=== PATIENT | female | born 1985 ===

== ENCOUNTER 2017-03-03 18:04 | Observation (INO) | payer OTHER ==
[~2017-03-03] VITALS: Ht 165.1 cm; Wt 96.2 kg
--- NOTE | 2017-03-03 21:09 | DRSVH ---
PROCEDURE: US OB>14 BIOPHYSICAL PROFILE AND UMBILICAL DOPPLER INDICATIONS: HECTOR & GROWTH INADEQUATE CARE OUTSIDE/PRIOR DATING DATA: Last menstrual period (LMP): Unknown. LMP-based estimated date of delivery (ROSIE): Unknown. First dating scan (date and location): 11/21/2016. Estimated date of delivery (ROSIE) from first dating scan: 03/19/2017. TECHNIQUE: Real-time scanning was performed of the fetus, with image documentation and biometric tj surements. Biophysical profile was also obtained. COMPARISON: None. FINDINGS: General: A single living intrauterine gestation is present. Presentation: Vertex Placenta: Placental position is anterior, without previa. Cervix: Not well-seen Amniotic fluid: 5.5 cm Heart rate: 165 beats per minute Biparietal diameter: 85.6 cm corresponding to an estimated gestational age 34 weeks and 4 days. Head circumference: 30.1 cm corresponding to an estimated gestational age of 34 weeks and 3 days. Abdominal circumference: 33 cm corresponding to an estimated gestational age of 36 weeks and 6 days. Femur length: 7.5 cm corresponding to an estimated gestational age of 30 weeks and 1 day Estimated gestational age by the initial dating ultrasound: 37 weeks and 5 days Composite gestational age by today's ultrasound: 36 weeks and 0 days Estimated weight: 2988 g corresponding to the 32nd percentile Biophysical profile score Tone: 2/2 Movement: 2/2 Respiration: 2/2 Largest pocket: 0/2 Umbilical artery systolic/diastolic: 2.1-2.3 anatomy: Ventricles, choroid plexus, cisterna magna, cerebellum: Within normal limits Profile: Not well-seen Spine: Not well-seen Heart: 4 chambers identified. The outflow tracts are not well seen Chest, diaphragm, stomach, abdomen, and kidneys: Ultrasonographically normal Bladder: Sonographically normal Extremities: Not well-seen IMPRESSION: 1. Single viable intrauterine gestation with an estimated gestational age of 36 weeks and 0 days whic h is concordant with the original dating ultrasound. 2. Biophysical profile score 6/8 (fetus scored a 0/2 for largest pocket of amniotic fluid). 3. Umbilical artery S/D 2.1-2.3. Dictated by: Jeremias Calvert M.D. on 03/03/2017 at 21:01 Approved by: Jeremias Calvert M.D. on 03/03/2017 at 21:07
[2017-03-03] MEDS ORDERED: Methylergonovine 0.2 mg/mL Inj IM PRN (21:10)
[2017-03-03] MEDS ORDERED: Oxytocin 30 Units/500 mL LR 30 UNITS in IV Premix 1 EACH IV PRN (21:10)
[2017-03-03] MEDS ORDERED: Oxytocin 10 Unit/mL Inj IM PRN (21:10)
[2017-03-03] MEDS ORDERED: Sodium Chloride LOK Flush 10 mL Syringe IVFLUSH PRN (21:10)
[2017-03-03] MEDS ORDERED: Carboprost 250 mCg/mL Inj IM PRN (21:10)
[2017-03-03] MEDS ORDERED: Hemorrhage Kit, Post Partum XX ONE (21:10)
[2017-03-03] MEDS: Lactated Ringer's 1,000 ML IV PRN ×2 (21:25→23:18)
[2017-03-03] MEDS ORDERED: no current meds (21:38)
--- NOTE | 2017-03-04 09:29 | PCM.DIOB ---
Obstetrical Disch Instruction Date of Service: Mar 04, 2017 Dates of Hospitalization Date of Hospital Admission Mar 03, 2017 at 20:47 Providers Admitting Physician: Traci Parra MD Primary Care Physician: Jenny Fairchild MD Attending Physician: Traci Parra MD Discharge Diagnosis Discharge Diagnosis IUP@37weeks 6 days with reassuring status. Maternal substance abuse. HECTOR=6.5cm, BPP=10/10. Problems: Diet Discharge Diet: No restrictions Activity Discharge Activity-General: Pelvic Rest for 6 weeks, No lifting >10 pounds for 4-6 weeks Dressing and Incisional Care Hygiene: May shower Follow Up Plan Follow Up Plan Follow up for NST on 03/07/2017 and Repeat HECTOR in 1 week, Saturday. You need twice weekly evaluation and once weekly Ultrasound for measuring fluid. Will induce your labor at 39 weeks or earlier depending on any abnormal findings in surveillance. Follow-up appointment: Days (3) Call your provider for: Fever or Chills, Shortness of breath, Heavy vaginal bleeding, Other (decreased movements, leakage of fluid, regular strong uterine contractions , severe headache, chest pain, Right upper quadrant pain, visual symptoms.) Raoul Scales MD Mar 04, 2017 09:29
[2017-03-04] MEDS ORDERED: PREN-56 PO (09:30)
[2017-03-04] MEDS ORDERED: ASCO500S2 PO (09:40)
[2017-03-04] MEDS ORDERED: FERR-83 PO (09:40)
--- NOTE | 2017-03-04 10:07 | DRSVH ---
PROCEDURE: US OB AMNIOTIC FLUID INDEX/ POSITION LIMITED INDICATIONS: Assess for HECTOR OUTSIDE/PRIOR DATING DATA: Last menstrual period (LMP): None available. LMP-based estimated date of delivery (ROSIE): Not available. First dating scan (date and location): 11/21/2016 at [facility]. Estimated date of delivery (ROSIE) from first dating scan: 03/19/2017. TECHNIQUE: Real-time scanning was performed of the fetus, with image documentation and biometric measurements. COMPARISON: None. FINDINGS: General: A single living intrauterine gestation is present. Presentation: Vertex Placenta: Placental position is anterior, without previa. OB-DEVOPS CONSULTANT Ultrasound Procedure Report Summary Fetus Summary Est. Gest. Age by first dating scan(or LMP,if no prior):37 weeks, 6 days Heart Rate: 145 bpm Findings(Amniotic Sac) Amniotic Fluid Index (HECTOR): 6.30 cm Pelvis and Uterus Cervix Length: Not well seen Measurement variability for biometric dating: +/- 7 days from 14 weeks to 15 weeks 6 days gestation, +/- 10 days from 16 weeks to 21 weeks 6 days gestation, +/- 2 weeks from 22 weeks to 27 weeks 6 days gestation, +/- 3 weeks for 28 weeks gestation or later. Anatomic survey: There is normal tone and movement. IMPRESSION: 1. A single living intrauterine gestation estimated gestational age 37 weeks 6 days based on the init ial ultrasound. 2. HECTOR 6.3 cm. 2. Cervix not well-seen. Dictated by: Tana Cabello M.D. on 03/04/2017 at 10:02 Transcribed by: DARCY on 03/04/2017 at 10:07 Approved by: Tana Cabello M.D. on 03/04/2017 at 12:01
--- NOTE | 2017-03-04 10:36 | DIS ---
[address] [address] DISCHARGE SUMMARY PATIENT: KB IBRAHIM : 1985 MR#: [id number] ADMIT: 03/03/2017 JOB ID: [id number] DIS: REASON FOR ADMISSION: Admitted for observation by Dr. Parra for 2 variable decelerations on the tracing. DISCHARGE DIAGNOSIS: Reassuring status. HOSPITAL COURSE: For further details, refer to the admission note and the following details. The patient is 31 years old, 6, para 5-0-0-5, at 37 weeks and 6 days gestational age by 23 week ultrasound. Had her complicated with the followin. Late care with one care visit to Dr. Fairchild at around 29 weeks. 2. Marginal placenta previa, resolved on follow up ultrasound. 3. History of hypertension and anemia last . She still has anemia this but no hypertension so far. The patient presented to the triage with loss of mucous plug. Cervical exam on admission last night was 3 cm dilated cervix, 30% effaced, and high presenting vertex. The patient had observation with continuous monitoring overnight. heart tracing was showing baseline of 130 beats per minute, positive accelerations, no decelerations, moderate variability, category 1 heart tracing since 1:30 a.m., and it is 9:30 a.m., so for the last 8 hours reassuring tracing. Biophysical profile last night was 10/10 after discussing with the radiologist. There was a maximum vertical pocket of 4 cm that qualifies for 2.4 amniotic fluid a portion of the biophysical profile. HECTOR last night was 5.5 cm. Repeat HECTOR this morning was 6.5 cm after bedrest overnight and IV hydration. Ultrasound last night also showed estimated weight of 2988 g, 32nd percentile, adequate growth, normal umbilical cord Dopplers. Average gestational age 36 weeks and 0 days. Estimated due date still March 19, 2017. Anterior placenta without previa. Cervical exam at the time of discharge by myself was 4 cm dilated, cervix 40% effaced, high presenting part. H and H on admission was 10 and 31.5, platelets 268, white blood count 13.7. Urine drug screen showed positive results for amphetamines, the rest was negative. DISCHARGE PLAN: The patient will be discharged home in stable condition. Will follow up in three days for NST. The plan would be biweekly NSTs and weekly AFIs, and will induce her labor at 39 weeks as elective induction. The above was discussed in detail with Dr. Renetta Root from the [facility], and she agreed there is no indication for induction of labor at that point considering the reassuring status and the improving HECTOR. The above was discussed with the patient as well, and the patient was encouraged to not use amphetamine again. She stopped completely for 1-1/2 years, and she just used it a few days ago for the first time after 1-1/2 years. She confirms she is not planning to use it again for the remainder of the . The above was discussed with the patient's software support representative, Dr. Fairchild, as well, who is aware of the plan and agreed also to the above.
--- NOTE | 2017-03-04 17:08 | NUR ---
Family Assessment Date/time: LUZ and JYOTHI and Baby: LUZ is Alanna Galdamez, JYOTHI Is Zach. LUZ is still and has not given yet. Reason for SW consult: TYING MACHINE OPERATOR LUMBER recieved order to meet with LUZ due to transportation concerns, late to care and positive tox screen for Amphetamines. TYING MACHINE OPERATOR LUMBER met with LUZ at bedside to check in and assess for any unmet needs, TYING MACHINE OPERATOR LUMBER role explained. LUZ explained that she was at home when she realized some of her mucus plug had discharged and she began to feel occasional contractions. LUZ states her other children where delivered very quickly once labor started and she presented to the ED in result. Current living situation: LUZ lives with her and their five children with husbands parents. Rhys recently moved from [place], [place] to the [facility] here in [place] this summer. Previous children/in whos care/CPS involvement: Rhys have five other children together (two girls and three boys ages ranging from 1-6 years old.) LUZ states that she has had the [facility] child services check in with them in the past due to previous drug screenings but none of the children were removed. Substance abuse hx: Pt states she has struggled with TCH and meth in the past. Pt states she was in a 6 month in drug rehab program in January of 2016 which was very helpful. LUZ states she has been clean since leaving [place] but relapsed five days ago when she did a "line" worth of meth. LUZ stated understanding that she knows child services will be contacted if baby tox screen or cord stat comes up positive for any substances after baby is born. LUZ explained that she relapsed due to recent losses included a in the family and the recent stressors of moving to a new city. LUZ denies any intention of continuing drug use the rest of her . Mental Health hx and current issues: LUZ denies any current struggles with mental health symptoms or previous diagnosis. LUZ does state that she has had depression with her last two births which was managed successfully with medications and family support. LUZ does not remember which medications she was on as she was not taking them for very long. LUZ denies any hx of suicidal or homicidal ideation during any of her experiences with depression. LUZ denies any current thoughts of harming herself or others and feels comfortable speaking to her or her physician [facility] if symptoms due arise. Post informational sheet provided for further reference. Source of income/state assistance: MOB and FOB are not working at this time. MOB is enrolled in WIC and TANF. DV/abuse hx: Denies. Supports: LUZ states FOB and FOB family are good supports. Special healthcare needs/disabilities for baby: N/A Involvement/Referral to [facility]/community programs: LUZ is enrolled in WIC. Further information surrounding TETO provided. Other: Late to care discussed with LUZ. LUZ confirmed she only had one ultrasound and was referred back and forth between [facility] and [facility] for various blood tests and follow up care. MOB encouraged to at least see her PCP and to look into a level vial marker for baby once baby is born. MOB states baby level vial marker is picked out as [facility]/Medicaid list of Pediatricians in the area provided just in case. LUZ confirmed that she has access to Medicaid transportation for medical appointments but they require 48 hours advance notice and LUZ was trying to avoid needing ambulance transportation due to high cost. MOB denies any other concerns with access to transportation. MOB denies any other needs. Assessment: TYING MACHINE OPERATOR LUMBER spoke with RN and MD who were concerned more with baby weight and deciding if MOB was really in active labor or not. It was decided later that MOB was safe to discharge home and follow up with outpt OB. No other TYING MACHINE OPERATOR LUMBER orders or MOB needs identified. Disposition/plan: MOB to discharge home with family. If MOB comes back to this medical system to deliver, TYING MACHINE OPERATOR LUMBER to follow up for any additional needs, new concerns or positive cord stat pending MD order. TETO, Post fact sheet, level vial marker and other community support services provided. No other TYING MACHINE OPERATOR LUMBER orders or MOB needs identified. ARMANDO Ying
== END 2017-03-04 10:15 | disposition home or self-care (01) ==
LOC: FBCO 18:04 → UNDOADMIN 20:47 → INTOOBSV 20:47 → FBC 20:47
PROVIDERS: ADMIT Obstetrics & Gynecology; ATTEND Obstetrics & Gynecology
DX: O76 Abnormality in fetal heart rate and rhythm complicating labor and delivery (principal); O09.33 Supervision of pregnancy with insufficient antenatal care, third trimester; O99.013 Anemia complicating pregnancy, third trimester; D64.9 Anemia, unspecified; Z3A.37 37 weeks gestation of pregnancy
CPT/HCPCS: 36415; 76805; 76815; 76819; 76820; 80053; 85027; 87081; 87491; 87591; G0378; G0463; G0472; G0480; J7120

== ENCOUNTER 2017-03-07 22:25 | Inpatient (IN) | payer OTHER ==
[~2017-03-07] VITALS: Ht 162.6 cm; Wt 93.0 kg
[~2017-03-07 22:25] MED LIST: ASCO500S2 PO; FERR-83 PO; PREN-56 PO; no current meds
[2017-03-08] MEDS ORDERED: Lactated Ringer's 1,000 ML IV PRN (00:37)
[2017-03-08] MEDS ORDERED: Oxytocin 10 Unit/mL Inj IM PRN ×2 (00:40→05:35)
[2017-03-08] MEDS ORDERED: Methylergonovine 0.2 mg/mL Inj IM PRN ×2 (00:40→05:35)
[2017-03-08] MEDS ORDERED: Sodium Chloride LOK Flush 10 mL Syringe IVFLUSH PRN (00:40)
[2017-03-08] MEDS ORDERED: Oxytocin 30 Units/500 mL LR 30 UNITS in IV Premix 1 EACH IV PRN ×2 (00:40→05:35)
[2017-03-08] MEDS ORDERED: fentaNYL-PF 50 mCg/mL 2 mL Inj IVPUSH PRN (00:40)
[2017-03-08] MEDS ORDERED: Carboprost 250 mCg/mL Inj IM PRN ×2 (00:40→05:35)
[2017-03-08] MEDS ORDERED: Hemorrhage Kit, Post Partum XX ONE ×2 (00:40→05:35)
[2017-03-08 01:07] LABS: Mean Corpuscular Hemoglobin 28.2 pg (27.0-35.0)
[2017-03-08] MEDS: Lactated Ringer's 1,000 ML IV SCH ×3 (05:31→21:31)
[2017-03-08] MEDS ORDERED: LANOlin HPA 7 Gm Ointment TOPICAL PRN (05:35)
[2017-03-08] MEDS ORDERED: Measles-Mumps-Rubella Vaccine 0.5 mL Inj SUBQ ONE (05:50)
--- NOTE | 2017-03-08 06:19 | HP ---
[address] [address] HISTORY AND PHYSICAL PATIENT: KB IBRAHIM : 1985 MR#: [id number] ADMIT: 03/08/2017 JOB ID: [id number] ADMISSION DIAGNOSIS: Active labor at term. HISTORY OF PRESENT ILLNESS: The patient is a 32-year-old, 6, para 5-0-0-5, at 38 weeks and 3 days gestational age by 23 week ultrasound. Had her complicated with the followin. Borderline oligohydramnios with HECTOR of 5.5 on March 03, 2017. Repeat was 6.5 cm on March 04, 2017. The patient was on surveillance with biweekly NSTs and weekly AFIs that were reassuring so far. 2. Presented in active labor with a 6 cm dilated cervix. 3. History of substance abuse. Positive UDS for amphetamines on March 01, 2017. UDS on admission today was negative. The patient admitted to amphetamine use; the last was one week ago. 4. Anemia, on iron and vitamin C supplementation. 5. History of hypertension with last . Maintained normal blood pressures during this . 6. BMI of 35.2. The patient denied any leakage of fluid, vaginal bleeding. Reports movements. Admitted for active labor. PAST OBSTETRICAL HISTORY: Five full-term pregnancies ended with spontaneous vaginal deliveries. No complications, per patient. PAST GYNECOLOGIC HISTORY: No history of abnormal Pap smears. History of prior Chlamydia, treated. Last chlamydia cultures during this were negative. PAST MEDICAL HISTORY: Anemia and asthma. Takes p.r.n. Ventolin inhaler. PAST SURGICAL HISTORY: None. MEDICATIONS: vitamins, Colace, vitamin C, iron. ALLERGIES: 1. PENICILLIN with hives. 2. HYDROCODONE and IBUPROFEN with itching. SOCIAL HISTORY: Cigarette smoking. Currently smokes four cigarettes per day. Had been smoking half a pack per day for the last 13 years, then she dropped to four cigarettes during the . Denied any alcohol consumption. Abusing amphetamine and methamphetamine. Last use was one week ago, per patient. FAMILY HISTORY: Positive for twinning. No congenital anomalies in the family. LABORATORIES: O positive, antibody negative, rubella nonimmune, RPR nonreactive, hepatitis C and B surface antigen negative, HIV nonreactive. Urine cultures negative. GC and chlamydia cultures negative. GBS cultures negative. H and H on admission is 9.9 and 32.2, platelets are 323, white blood count 12.7. PHYSICAL EXAMINATION: Patient is alert and oriented x3. Vital signs are 120/74 for blood pressure, respirations are 20, pulse is 88, temperature 36.2 degrees centigrade. Heart was regular rate and rhythm. Positive S1, S2. Lungs: Clear to auscultation bilaterally. Abdomen: Gravid uterus, nontender. Positive bowel sounds. Lower extremities: No calf tenderness appreciated bilaterally. Cervical exam: 8 cm dilated, cervix 90% effaced, -2 station, vertex presentation. Spontaneous rupture of membranes with clear scant amount of fluid. heart tracing is showing baseline of 140 beats per minute, positive accelerations, no decelerations, moderate variability, category 1 heart tracing. ASSESSMENT AND PLAN: The patient is a 32-year-old, 6, para 5-0-0-5, at 38 weeks and 3 days gestational age by 23 week ultrasound, with the above complications, in addition to cigarette smoking and rubella nonimmune status. 1. For labor, we will expectantly manage. 2. Category 1 heart tracing. Continue with external monitoring. 3. GBS cultures negative. 4. Discussed intrapartum analgesia options. Patient opted for natural . 5. Will administer MMR . All the above was discussed in detail with the patient, who agreed to the plan.
[2017-03-08] MEDS: Benzocaine (Dermoplast) 20% 60 Gm Spray TOPICAL PRN ×2 (06:24→07:51)
[2017-03-08] MEDS: Witch Hazel-Glycerin Pads TOPICAL PRN ×2 (06:24→07:51)
--- NOTE | 2017-03-08 06:25 | OP ---
[address] [address] OPERATIVE REPORT PATIENT: KB IBRAHIM : 1985 MR#: [id number] ADMIT: 03/08/2017 JOB ID: [id number] DATE OF SURGERY: 03/08/2017 DELIVERY NOTE: PREOPERATIVE DIAGNOSIS(ES): A 32-year-old, 6, para 5-0-0-5 at 38 weeks and 3 days, gestational age by 23 week ultrasound, presents in active labor, progressed to fully dilated, +3 station. POSTOPERATIVE DIAGNOSIS(ES): A 32-year-old, 6, para 5-0-0-5 at 38 weeks and 3 days, gestational age by 23 week ultrasound, presents in active labor, progressed to fully dilated, +3 station. PROCEDURE: Spontaneous vaginal delivery. SURGEON: Raoul Scales MD. ANESTHESIA: None. ESTIMATED BLOOD LOSS: 200 cc. COMPLICATIONS: None. FINDINGS: Single viable female infant with Apgars 8/10. Weight is still pending. DESCRIPTION OF PROCEDURE: The patient started to push efficiently. Infant had delivered in right occiput anterior position, followed by shoulders and rest of the body. Delayed cord clamping allowed for 60 seconds. Infant placed over mom's chest. Cord clamped and cut. Placenta followed spontaneously. Upon inspection, it was noted to be intact with three-vessel cord centrally inserted. Firm uterine fundus with no blood clots retrieved after delivery of the placenta. Inspection of the perineum revealed an intact perineum. The patient tolerated the procedure well. Mom and baby recovering in stable condition in labor and delivery room. Sponge and instrument counts were correct x2. Good hemostasis achieved. Dr. Scales was present and scrubbed for the entire procedure.
[2017-03-08] MEDS: oxyCODONE-Acetamin 5-325 mg Tablet PO PRN ×3 (06:35→20:22)
[2017-03-08] MEDS: Ascorbic Acid 500 mg Tablet PO SCH ×2 (07:51→20:22)
--- NOTE | 2017-03-08 17:26 | NUR ---
Family Assessment Date/time: 03/08/2017 MOB and FOStarla and Baby: MOB is Alanna Galdamez, FOB Is Zach. Baby name is Tabatha Galdamez Reason for SW consult: BUSINESS OPERATIONS SPECIALIST received order to meet with MOB due to late to care and admitted exposure for baby to meth during . BUSINESS OPERATIONS SPECIALIST met with MOB at bedside to check in and assess for any unmet needs, BUSINESS OPERATIONS SPECIALIST role explained. BUSINESS OPERATIONS SPECIALIST had also met with MOB during a previous hospital visit on 03/03/2017, see previous assessment. Current living situation: LUZ lives with her and their five children with husbands parents. LUZ and JYOTHI recently moved from [place], [place] to [place] this summer. Previous children/in whos care/CPS involvement: LUZ and JYOTHI have five other children together (two girls and three boys ages ranging from 1-6 years old.) LUZ states that she has had the [facility] child services check in with them in the past due to previous drug screenings but LUZ and JYOTHI have all their children in their custody. Substance abuse hx: LUZ tox screen today was negative for all substances. Pt states she has struggled with meth in the past. Pt states she was clean for the last year until she did a line of meth last week. LUZ stated understanding that she knows child services will be contacted due to exposure of meth to baby during . Mental Health hx and current issues: LUZ denies any symptoms at this time. LUZ has had depression with her last two births which was managed successfully with medications and family support. LUZ denies any hx of suicidal or homicidal ideation during any of her experiences with depression. LUZ has already arranged an appointment with [facility] for 03/15/2017 for extra support and feels comfortable speaking to her or her physician at the [facility] if symptoms due arise. LUZ confirmed she still had the Post informational sheet provided at previous hospital visit three days ago for further reference. Source of income/state assistance: LUZ and JYOTHI are not working at this time. LUZ is enrolled in WIC and TANF. DV/abuse hx: Denies. LUZ confirmed she feels safe at home. Supports: MOB states FOB and FOB family are good supports. MOB is with the [facility], JYOTHI is with the [facility] for extra supports and services. Special healthcare needs/disabilities for baby: N/A Involvement/Referral to [facility]/community programs: MOB is enrolled in [facility]. MOB confirmed she has other information on [facility] previously provided. Other: Late to care discussed with MOB. MOB explained she had multiple referrals back and forth between her [facility] and [facility]. MOB states baby wire frame dipper is as [facility]. MOB denies any other needs. Assessment: BUSINESS OPERATIONS SPECIALIST spoke with RN to assess for any other needs or concerns. RN denies any other concerns and confirmed MOB is appropriate and bonding well with baby. As a mandated reported and per hospital policy, CPS report was made due to exposure to meth during . BUSINESS OPERATIONS SPECIALIST made report to [facility] Mine Manager "Ammy Chavez" who gave permission to reference her by name in this note as she was unable to provide a reference number for this report at the time. Disposition/plan: MOB to discharge home with family, unless CPS says otherwise. BUSINESS OPERATIONS SPECIALIST to contact CPS tomorrow morning to see if this report screened in or not. Cord stat pending. TETO, Post fact sheet, wire frame dipper and other community support services previously provided. MOB confirmed she still had this packet with her personal belongings and declined another copy of the resource packet. No other BUSINESS OPERATIONS SPECIALIST orders or MOB needs identified. ARMANDO Ying
[2017-03-09] MEDS: oxyCODONE-Acetamin 5-325 mg Tablet PO PRN ×3 (02:21→11:48)
[2017-03-09] MEDS: Lactated Ringer's 1,000 ML IV SCH (03:05)
[2017-03-09 07:07] LABS: Mean Corpuscular Hemoglobin 28.1 pg (27.0-35.0); Mean Corpuscular Volume 87.1 fL (81-100)
--- NOTE | 2017-03-09 08:00 | NUR ---
Family RUBBER FLAP TUBER MACHINE OPERATOR Note D&A: RUBBER FLAP TUBER MACHINE OPERATOR followed up with [facility] Intake regarding report made yesterday (03/08/2017). This report screened in and a [facility] Offset Platemaker will be meeting with pt this morning prior to discharge. MOB RN notified. RUBBER FLAP TUBER MACHINE OPERATOR to continue to follow if any other needs arise. P: MOB anticipated discharge later today per RN. Intake Screened in and [facility] SW to follow up with MOB this morning prior to discharge. RUBBER FLAP TUBER MACHINE OPERATOR to continue to follow if any other needs arise. ARMANDO Ying Addendum: 03/09/17 at 1452 by FRANCISCA METZ RUBBER FLAP TUBER MACHINE OPERATOR spoke with Filipe from [facility] ([phone]) who met with MOB and baby. Per Filipe with CPS there is no immediate concerns with baby safety and are not removing the baby at this time. Per Filipe with CPS, he has completed his required follow up to assess for immediate safety and the [facility] social media intern will be following up with MOB and baby at home. RN notified. Intake number: [id number] ARMANDO Ying
[2017-03-09] MEDS ORDERED: MedroxyPROGESTERone 150 mg/mL Inj IM SCH (08:35)
--- NOTE | 2017-03-09 11:14 | PCM.DIOB ---
Obstetrical Disch Instruction Date of Service: Mar 09, 2017 Dates of Hospitalization Date of Hospital Admission Mar 08, 2017 at 00:32 Providers Admitting Physician: Raoul Scales MD Primary Care Physician: Jenny Fairchild MD Attending Physician: Raoul Scales MD Discharge Diagnosis Discharge Diagnosis PPD1 grandmultiparity History of drug abuse with amphetamine Problems: Diet Discharge Diet: No restrictions Activity Discharge Activity-General: Pelvic Rest for 6 weeks, Try not to overdue, Be up and about, Balance rest and activity, No lifting >15 pounds for 2 weeks Dressing and Incisional Care Hygiene: May shower, NO bathtub, hot tub or whirlpool Additional Instructions Discharge Instructions Please call office or go to ER if heavy vaginal bleeding, severe abdominal pain , foul smelling discharge, fever more than 100.4 or short of breath. Follow Up Plan Follow Up Plan 6 weeks after delivery at office Follow-up appointment: Weeks (6) Call your provider for: Fever or Chills, Shortness of breath, Heavy vaginal bleeding, Epigastric pain, Excessive constipation, Vaginal discomfort, Red painful breasts Gisela Pelayo MD Mar 09, 2017 11:13
[2017-03-09] MEDS ORDERED: FERR-83 PO (11:18)
[2017-03-09] MEDS ORDERED: IBUP800T28 PO (11:18)
[2017-03-09] MEDS ORDERED: DOCU-41 PO (11:18)
[2017-03-09] MEDS: Ascorbic Acid 500 mg Tablet PO SCH (11:48)
--- NOTE | 2017-03-09 13:04 | DIS ---
[address] [address] DISCHARGE SUMMARY PATIENT: KB IBRAHIM : 1985 MR#: [id number] ADMIT: 03/08/2017 JOB ID: [id number] DIS: 03/09/2017 A 32-year-old female, grand multiparity, para 6, and this is day one after normal vaginal delivery. The patient doing well. Her pain is well controlled by p.o. medication. She was able to ambulate and void well and she was able to tolerate her diet. No nausea, vomiting. PHYSICAL EXAMINATION: She is afebrile. Cardiac RRR. No murmur. Pulmonary: Bilaterally clear. Back: Nontender. Abdomen soft, nontender. Uterus well contracted. Extremities nontender. Lochia moderate to minimal. ASSESSMENT AND PLAN: This is a 32-year-old female, day one after normal vaginal delivery. Grand multiparity. 1. Patient has history of drug abuse. Her last time taking amphetamine was about a week ago. Her urinary drug screen test negative at admission. She has been seen by social insurance specialist and plan to get CPS involved. The patient will seen this morning before discharge. 2. The patient desires for Depo-Provera for control. She will get the injection before discharge. 3. Her H and H after delivery this morning was 8.7/27. Previously, before delivery was 9.9/30.2. Will continue with her iron pills twice a day with Colace. 4. The patient been using Percocet for pain control after a normal vaginal delivery. Will switch her to ibuprofen 800 mg q.i.d. to go home with. 5. Patient is instructed to follow up in the office six weeks after delivery. After delivery, her blood pressure all in normal range. No headache. No blurry vision. No epigastric pain. No concerns of preeclampsia.
[2017-03-09 14:38] VITALS: BP 117/68; PULSE 87; RESP 16
--- NOTE | 2017-03-15 15:42 | PATH ---
SURGICAL PATHOLOGY Attending Physician:Raoul Scales MD CASE STATUS: Signed Out PATIENT NAME: KB IBRAHIM PID: [id number] : 1985 DATE COLLECTED:03/08/2017 22:16 SPECIMEN: Placenta CLINICAL HISTORY: 1). PLACENTA FOR BORDERLINE OLIGOHYDRAMNIOS FINAL DIAGNOSIS: 1.PLACENTA FOR BORDERLINE OLIGOHYDRAMNIOS, SPONTANEOUS VAGINAL DELIVERY: - GUSMAN PLACENTA WEIGHING 528 GRAMS. - THREE VESSEL UMBILICAL CORD WITH NO EVIDENCE OF INFLAMMATION. - MEMBRANES WITH NO EVIDENCE OF INFLAMMATION. - MILD CHRONIC AND ACTIVE DECIDUITIS. - VILLOUS MATURATION APPROPRIATE FOR GESTATIONAL AGE. ICD10 O41.00 GROSS DESCRIPTION: The specimen is received in formalin, labeled with the patient's name, and consists of an intact placenta which includes the placental disc (528 g, 16.5 x 15.8 x 3.2 cm), membranes and umbilical cord (length-20.6 cm, diameter-1.0 x 1.0 cm). The membranes are ruptured 3.5 cm from the free edge of the placenta and are thick, rubbery, and opaque. The umbilical cord is attached 5.4 cm from the edge of the placenta and contains 3 vessels. The surface is bosselated, shiny with dilated firm vessels and a meza-white opacity (3.5 x 2.2 cm) involving less than 5% of the surface. No evidence of meconium identified is identified. The maternal surface is dark maroon with normal cotyledon formation. The placental body is spongy and contains a pale meza irregularly firm area (1.5 x 1.5 x 1.1 cm) involving the maternal surface 0.5 cm from the surface. No nodules, masses, lesions, or hematomas are identified. Section code: (A) edge of placenta with membranes; (B) umbilical cord; (C-D, E-F, G, H) placenta, 4 full-thickness sections. 03/13/17 JM MICRO DESCRIPTION: See diagnosis. ICD-9 CODES: CPT CODES: 1: 68621 Electronically Signed Out Juan Luis Capellan MD [facility], [place] [address] Technical component performed at [facility] [address], [place], [address]
--- NOTE | 2017-03-18 10:50 | NUR ---
Social Work- After Visit Telephone Call Radha Ontiveros [phone] called this worker requesting more information regarding baby's tox screen. Referred to ARMANDO Quinn who worked the case and made the referral. CPS worker Phone number provided to [place]. [place] updated by phone as well. ARMANDO Robin
--- NOTE | 2017-03-18 14:08 | NUR ---
Social Work Note-After Visit Phone Call SHOPFITTER received phone call from CPS medical legal investigator Radha Ontiveros ( )requesting information on valerie Galdamez Cord Blood results. SHOPFITTER contacted manufacturing engineer in [facility] who identified that valerie Mays's cord blood stat results were negative for all substances. SHOPFITTER notified CPS medical legal investigator of these results via t/c, voicemail left on her secured voicemail and SHOPFITTER phone number provided if there is any other questions. ARMANDO Ying
== END 2017-03-09 16:32 | disposition home or self-care (01) | DRG 775 ==
LOC: FBCO 22:25 → FBC 03-08 00:32
PROVIDERS: ADMIT Obstetrics & Gynecology; ATTEND Obstetrics & Gynecology
PROC: 10E0XZZ Delivery of Products of Conception, External Approach (ICD-10-PCS; principal; 2017-03-08)
PROC: 3E0234Z Introduction of Serum, Toxoid and Vaccine into Muscle, Percutaneous Approach (ICD-10-PCS; 2017-03-08)
DX: O99.324 Drug use complicating childbirth (principal); F15.90 Other stimulant use, unspecified, uncomplicated; O99.334 Smoking (tobacco) complicating childbirth; O99.02 Anemia complicating childbirth; Z3A.38 38 weeks gestation of pregnancy; Z37.0 Single live birth; Z23 Encounter for immunization